=== PATIENT | female | born 1930 | race African-American/Black ===

== ENCOUNTER 2018-02-12 14:09 | Emergency (ER) | payer SELFPAY ==
[~2018-02-12] VITALS: Ht 172.7 cm; Wt 87.0 kg
[2018-02-12] MEDS ORDERED: HYDRALAZINE 20MG/ML VIAL IV ONE ×2 (14:45→15:45)
[2018-02-12] MEDS ORDERED: ETOMIDATE 2MG/ML 10ML VIAL IV ONE (14:57)
[2018-02-12] MEDS ORDERED: SUCCINYLCHOLINE CHLORIDE 200MG/10ML VIAL IV ONE (14:57)
[2018-02-12 15:40] LABS: BASOPHILS % 0.4 % (0.0-2.0); HEMOGLOBIN. 13.3 g/dL (12.0-16.0); LYMPHOCYTES % 14.7 % (20.0-50.0); MEAN PLATELET VOLUME 8.8 fl (7.4-10.4); MONOCYTES % 7.7 % (2.0-8.0); NEUTROPHILS % 77.2 % (40.0-76.0); PLATELET 230 x1000/uL (130-400); RED BLOOD CELL COUNT 4.44 mill/uL (4.2-5.4); RED CELL DISTRIBUTION WIDTH 15.6 % (11.6-14.6)
[2018-02-12 15:47] LABS: CHLORIDE 98 mEq/L (98-107)
[2018-02-12] MEDS ORDERED: IOHEXOL-350 100 ML BOTTLE ONE (15:53)
[2018-02-12 15:56] LABS: AMMONIA < 10 uMol/L (<32)
[2018-02-12] MEDS ORDERED: DEXAMETHASONE 4MG/ML 1ML VIAL IV ONE (16:30)
[2018-02-12] MEDS ORDERED: LEVETIRACETAM 500MG PREMIX 100 ML IV ONE (16:30)
[2018-02-12] MEDS ORDERED: PROPOFOL 10MG/ML 100ML 100 ML IV ONE (16:30)
[2018-02-12] MEDS ORDERED: MANNITOL 20% (20GM/100ML) BAG 500ML PREMIX IV NR ×2 (16:30→18:40)
[2018-02-12] MEDS ORDERED: MANNITOL 20% 250 ML IV NR (16:45)
[2018-02-12 17:27] VITALS: BP 162/83
[2018-02-12 17:37] LABS: CLARITY URINE CLEAR (CLEAR); COLOR URINE YELLOW (YELLOW); KETONES URINE 1+ (NEGATIVE); LEUKOCYTE ESTERASE URINE TRACE (NEGATIVE); NITRITE URINE NEGATIVE (NEGATIVE); OCCULT BLOOD URINE 1+ (NEGATIVE); PROTEIN URINE 1+ (NEGATIVE); SPECIFIC GRAVITY URINE 1.031 (1.005-1.030); UROBILINOGEN URINE 0.2 E.U./dL (0.2-1.0)
[2018-02-12 17:55] LABS: *AMPHETAMINES SCREEN URINE NEGATIVE (NEGATIVE); *BARBITURATES SCREEN URINE NEGATIVE (NEGATIVE); *BENZODIAZEPINES SCREEN URINE NEGATIVE (NEGATIVE); *COCAINE SCREEN URINE NEGATIVE (NEGATIVE); METHADONE URINE SCREEN NEGATIVE (NEGATIVE); OPIATES URINE SCREEN NEGATIVE (NEGATIVE)
[2018-02-12 17:56] LABS: CANNABINOID URINE SCREEN NEGATIVE (NEGATIVE); PHENCYCLIDINE URINE SCREEN NEGATIVE (NEGATIVE)
== END 2018-02-12 18:09 | disposition short-term general hospital (02) ==
LOC: ER 15:14 → CANBEDREQ 18:04 → ER 18:09
DX: I63.9 Cerebral infarction, unspecified (principal); I61.9 Nontraumatic intracerebral hemorrhage, unspecified; I60.9 Nontraumatic subarachnoid hemorrhage, unspecified; R41.82 Altered mental status, unspecified; I67.1 Cerebral aneurysm, nonruptured; I65.22 Occlusion and stenosis of left carotid artery; G93.6 Cerebral edema; I51.7 Cardiomegaly; G91.9 Hydrocephalus, unspecified; D72.819 Decreased white blood cell count, unspecified; E87.1 Hypo-osmolality and hyponatremia; R82.71 Bacteriuria; R31.9 Hematuria, unspecified; R80.9 Proteinuria, unspecified; R82.4 Acetonuria; R79.89 Other specified abnormal findings of blood chemistry; R82.90 Unspecified abnormal findings in urine; I10 Essential (primary) hypertension; K59.00 Constipation, unspecified
CPT/HCPCS: 31500; 36415; 70450; 70496; 71045; 80053; 80305; 81003; 82140; 83036; 83735; 83880; 84484; 85025; 87040; 87086; 93005; 94002; 96365; 96368; 96375; 96376; 99291; J0330; J0360; J1100; J1953; J2704; J3490; Q9967; Z7610